=== PATIENT | female | born 1995 | race Caucasian/White ===

== ENCOUNTER 2017-07-27 08:31 | Emergency (ER) | payer OTHER ==
[~2017-07-27] VITALS: Ht 160 cm; Wt 49.9 kg
[~2017-07-27 08:31] MED LIST: ACYC400 PO; ACYC800 PO; Bactrim Ds Tab1 EACH PO; CEPH500 PO; CODACEE120 PO; HYDACE5 PO; Keflex500 MG PO; MEDR150I IM; MUPI2TO TOP; NAPR550 PO; NITR100CA PO; Norco 5-325 Ta1 EACH PO; PERM5TC TOP; PHENA200 PO; Percocet 5-3251 EACH PO; Pyridium100 MG PO; SULTRIDS PO; Zovirax800 MG PO
[2017-07-27 09:26] LABS: Source, Urine Clean Catch
[2017-07-27] MEDS ORDERED: Pyridium100 MG PO (09:33)
[2017-07-27] MEDS ORDERED: Macrobid 100 M100 MG PO (09:33)
[2017-07-27 09:43] LABS: Blood, Urine 5+ (Neg); Glucose Qualitative, Urine Neg (Neg); Ketones, Urine 4+ (Neg); Leukocyte Esterase, Urine 3+ (Neg); Nitrite, Urine Pos (Neg); Protein, Urine 3+ (Neg); Specific Gravity, Urine 1.025 (1.003-1.022); Urobilinogen, Urine 1+ (Normal)
[2017-07-27 09:59] LABS: Appearance, Urine Cloudy (Clear); Color, Urine Yellow (P-Yellow)
[2017-07-27 10:00] LABS: Bilirubin, Urine 1+ (Neg)
[2017-07-27 10:02] LABS: Bacteria Many /hpf; Red Blood Cells, Urine TNTC /hpf (0-2); Squamous Epithelial Cells Many /hpf (Few); White Blood Cells, Urine TNTC /hpf (0-5)
[2017-07-27 10:04] LABS: Transitional Epithelial Cells Rare /hpf (0-Rare)
== END 2017-07-27 09:40 | disposition home or self-care (01) ==
LOC: ER 08:31
PROVIDERS: Psychiatry & Neurology Psychiatry
DX: N39.0 Urinary tract infection, site not specified (principal); F32.9 Major depressive disorder, single episode, unspecified; F17.200 Nicotine dependence, unspecified, uncomplicated
CPT/HCPCS: 81001; 81025; 99283

== ENCOUNTER 2017-08-09 12:56 | Emergency (ER) | payer OTHER ==
[~2017-08-09] VITALS: Ht 160 cm; Wt 52.2 kg
[~2017-08-09 12:56] MED LIST changes: +Macrobid 100 M100 MG PO
[2017-08-09] MEDS ORDERED: IBUP600 PO (13:11)
[2017-08-09] MEDS ORDERED: CYCL10 PO (13:11)
== END 2017-08-09 13:16 | disposition home or self-care (01) ==
LOC: ER 12:56
DX: H61.23 Impacted cerumen, bilateral (principal); M54.5 Low back pain; G89.29 Other chronic pain; Z79.899 Other long term (current) drug therapy; F32.9 Major depressive disorder, single episode, unspecified; F17.200 Nicotine dependence, unspecified, uncomplicated
CPT/HCPCS: 99282

== ENCOUNTER → 2018-01-10 | Outpatient (CLI) | payer OTHER ==
[~2018-01-10] MED LIST changes: +CYCL10 PO; +IBUP600 PO
[2018-01-16 20:10] LABS: AFP VALUE 54.8 ng/mL (.); DIA MOM 0.96 (.); DIA VALUE 188.52 pg/mL (.); DSR (BY AGE) 1 IN 1084 (.); DSR (SECOND TRIMESTER) 1 IN 6590 (.); GEST. AGE ON COLLECTION DATE 17.9 WEEKS (.); HCG MOM 0.72 (.); HCG VALUE 23838 mIU/mL (.); INSULIN DEP DIABETES No (.); MATERNAL AGE AT EDD 23.6 yr (.); MULTIPLE GESTATION No (.); OSBR RISK 1 IN 8933 (.); RACE Caucasian (.); RESULTS Report (.); T18 RISK Not increased (.); TEST RESULTS: *Screen Negative* (.); UE3 MOM 0.76 (.); UE3 VALUE 1.01 ng/mL (.); WEIGHT 118 lbs (.)
== END ==
LOC: LAB 17:21 → LAB SHORT 17:21
PROVIDERS: Registered Nurse Community Health
DX: Z34.82 Encounter for supervision of other normal pregnancy, second trimester (principal)
CPT/HCPCS: 82105; 82677; 84702; 86336

== ENCOUNTER → 2019-10-15 | Outpatient (CLI) | payer OTHER ==
[~2019-10-15] MED LIST changes: +Floxin10 ML RIGHTEAR
== END ==
LOC: LAB SHORT 15:45 → LAB EV 15:45
DX: N39.0 Urinary tract infection, site not specified (principal)
CPT/HCPCS: 87077; 87086; 87186

== ENCOUNTER 2022-08-31 14:28 | Emergency (ER) | payer OTHER ==
[~2022-08-31] VITALS: Ht 160 cm; Wt 49.9 kg
[2022-08-31] MEDS ORDERED: Bactrim Ds Tab1 EACH PO (16:23)
== END 2022-08-31 16:32 | disposition home or self-care (01) ==
LOC: ER 14:28
DX: L02.414 Cutaneous abscess of left upper limb (principal); F17.200 Nicotine dependence, unspecified, uncomplicated
CPT/HCPCS: 10061; 99282-25

== ENCOUNTER → 2025-02-20 | Outpatient (CLI) | payer OTHER ==
[2025-02-20 15:15] LABS: Candida Group, PCR NOT DETECTED (NOT DETECT); Candida glabrata-krusei, PCR NOT DETECTED (NOT DETECT)
[2025-02-20 15:23] LABS: Bacterial Vaginosis PCR Positive (NEGATIVE)
[2025-02-20 15:49] LABS: Chlamydia Trachomatis Cervix NOT DETECTED (NOT DETECT); Neisseria Gonorrhoea Cervix NOT DETECTED (NOT DETECT)
== END | disposition home or self-care (01) ==
LOC: LAB SHORT 11:56 → LAB 11:56
PROVIDERS: Chiropractor
DX: Z72.51 High risk heterosexual behavior (principal); Z20.9 Contact with and (suspected) exposure to unspecified communicable disease
CPT/HCPCS: 81515; 87491; 87591

== ENCOUNTER → 2025-05-19 | Outpatient (CLI) | payer OTHER | END | disposition home or self-care (01) | LOC: LAB SHORT 09:15 → LAB 09:15 | DX: N39.0 Urinary tract infection, site not specified (principal) | CPT/HCPCS: 87077; 87086; 87186 ==